=== PATIENT | male | born 1990 | race Caucasian/White ===

== ENCOUNTER 2022-07-19 07:19 | Day surgery (SDC) | payer BC ==
[~2022-07-19 07:19] MED LIST: Dextrose 5%-0.45% NaCl 1,000 ML IV SCH; Sodium Chloride 0.9% 10 ML Syringe FLUSH PRN; Sodium Chloride 0.9% 10 ML Syringe FLUSH SCH
[2022-07-19] MEDS ORDERED: Propofol 200 MG/20 ML SDV IV ONE (07:20)
[2022-07-19] MEDS ORDERED: Lidocaine 1% 5 ML VIAL ONE (07:20)
== END 2022-07-19 10:03 | disposition home or self-care (01) ==
LOC: DL.ENDO 07:19
PROVIDERS: ATTEND Internal Medicine Gastroenterology
DX: K52.9 Noninfective gastroenteritis and colitis, unspecified (principal); K59.4 Anal spasm; E80.6 Other disorders of bilirubin metabolism; Z87.891 Personal history of nicotine dependence; Z79.899 Other long term (current) drug therapy
CPT/HCPCS: 00812; 45380; J2704; J7042